=== PATIENT | female | born 1950 | race Caucasian/White ===

== ENCOUNTER 2025-06-03 12:15 | Observation (INO) | payer MEDICARE, BC ==
[2025-06-03 13:13] LABS: BASOPHILS PERCENT AUTO 0.6 % (0.0-1.0); EOSINOPHILS PERCENT AUTO 2.6 % (1.0-3.0); LYMPHOCYTES PERCENT AUTO 19.6 % (20.5-50.1); MONOCYTES PERCENT AUTO 9.5 % (2-8); NEUTROPHILS PERCENT AUTO 67.7 % (42.2-75.2); PLATELET COUNT,PLT 161 10^3/uL (150-450); RED BLOOD CELL COUNT 3.99 10^6/uL (4.2-5.4); WHITE BLOOD CELL COUNT,WBC 7.0 10^3/uL (5.0-10.0)
[2025-06-03 13:41] LABS: BLOOD UREA NITROGEN,BUN 16 mg/dL (7-18); CARBON DIOXIDE,CO2 33 mmol/L (21-32); CHLORIDE,CL 103 mmol/L (98-107); CREATININE 0.87 mg/dL (0.55-1.02); ESTIMATED GFR 69 mL/min (>=60); GLUCOSE RANDOM 103 mg/dL (70-99); POTASSIUM,K 4.7 mmol/L (3.5-5.1); SODIUM,NA 140 mmol/L (136-145); T4 FREE 0.77 ng/dL (0.76-1.46); TSH ULTRASENSITIVE 4.81 uIU/mL (0.36-3.74)
[2025-06-03] MEDS: Metoprolol Tartrate 5 MG/5 ML SDV IVPUSH ONE (14:46)
[2025-06-03 17:24] VITALS: BP 121/58; PULSE 75
== END 2025-06-03 18:05 | disposition home or self-care (01) ==
LOC: DL.MS 12:47
PROVIDERS: ADMIT Internal Medicine; ATTEND Internal Medicine
DX: I48.91 Unspecified atrial fibrillation (principal); Z88.1 Allergy status to other antibiotic agents; Z79.01 Long term (current) use of anticoagulants; Z79.899 Other long term (current) drug therapy
CPT/HCPCS: 36415; 80048; 84439; 84443; 85025; J0616